=== PATIENT | female | born 1940 | race Two or more races ===

== ENCOUNTER 2021-09-26 08:15 | Inpatient (IN) | payer OTHER ==
[~2021-09-26] VITALS: Ht 152.4 cm; Wt 90.3 kg
[2021-09-26] MEDS ORDERED: LEVOTHYROXINE25 MCG PO (09:30)
[2021-09-26] MEDS ORDERED: GABAPENTIN300 MG (09:30)
[2021-09-26] MEDS ORDERED: ZESTORETIC 20-1 EACH PO (09:30)
[2021-09-26] MEDS ORDERED: PEPCID AC20 MG PO (09:31)
[2021-09-26] MEDS ORDERED: TYLENOL325 MG PO (09:31)
[2021-09-26] MEDS ORDERED: PRAVASTATIN SOD40 MG PO (09:31)
[2021-09-26] MEDS ORDERED: LASIX20 MG PO (09:31)
[2021-09-26] MEDS ORDERED: PRILOSEC OTC20 MG PO (09:32)
[2021-10-02] MEDS ORDERED: INTEGRA PLUS C1 EACH PO (07:53)
[2021-10-02] MEDS ORDERED: XARELTO10 MG PO (07:53)
[2021-10-02] MEDS ORDERED: BACTRIM DS TAB1 EACH PO (07:53)
[2021-10-02] MEDS ORDERED: OXYC1TAB9 PO (07:53)
== END 2021-10-03 22:00 | DRG 470 ==
LOC: SURG 09-30 05:40 → O/R 09-30 05:40 → SURH 09-30 08:15 → SURG 09-30 11:15
PROVIDERS: ADMIT Orthopaedic Surgery Sports Medicine; ATTEND Orthopaedic Surgery Sports Medicine
PROC: 0SRC0J9 Replacement of Right Knee Joint with Synthetic Substitute, Cemented, Open Approach (ICD-10-PCS; principal; 2021-09-30 10:45)
DX: M17.11 Unilateral primary osteoarthritis, right knee (principal); E03.8 Other specified hypothyroidism